=== PATIENT | female | born 1975 | race Asian ===

== ENCOUNTER 2021-09-27 10:48 | Outpatient (CLI) | payer OTHER | END 2021-09-27 19:24 | disposition home or self-care (01) | LOC: MAMMO 10:48 | PROVIDERS: ATTEND Nurse Practitioner Family | DX: Z12.31 Encounter for screening mammogram for malignant neoplasm of breast (principal) ==

== ENCOUNTER 2022-01-13 07:55 | Outpatient (CLI) | payer OTHER | END 2022-01-13 19:07 | disposition home or self-care (01) | LOC: RAD 07:55 | PROVIDERS: ATTEND Nurse Practitioner Family | DX: E55.9 Vitamin D deficiency, unspecified (principal); E56.8 Deficiency of other vitamins; M06.4 Inflammatory polyarthropathy; M79.671 Pain in right foot; R53.83 Other fatigue ==

== ENCOUNTER 2022-01-31 08:01 | Outpatient (CLI) | payer OTHER | END 2022-01-31 19:06 | disposition home or self-care (01) | LOC: RAD 08:01 | PROVIDERS: ATTEND Nurse Practitioner Family | DX: E56.8 Deficiency of other vitamins (principal); M05.79 Rheumatoid arthritis with rheumatoid factor of multiple sites without organ or systems involvement; M25.561 Pain in right knee; M25.562 Pain in left knee ==

== ENCOUNTER 2022-08-16 17:13 | Emergency (ER) | payer OTHER ==
[~2022-08-16] VITALS: Ht 160 cm; Wt 122.5 kg
[2022-08-16 17:16] VITALS: BP 144/87; TEMP 97.3
[2022-08-16 18:32] LABS: PLATELET COUNT 379 K/uL (152-353)
== END 2022-08-16 18:48 | disposition home or self-care (01) ==
LOC: ED 17:13
PROVIDERS: Emergency Medicine
DX: R11.2 Nausea with vomiting, unspecified (principal); E87.6 Hypokalemia
CPT/HCPCS: 80048; 85007; 85027; 99282